=== PATIENT | male | born 1985 | race African-American/Black ===

== ENCOUNTER 2021-11-25 02:16 | Emergency (ER) | payer SELFPAY ==
[2021-11-25] MEDS ORDERED: Albuterol 8 GM Inhaler INH STA (02:35)
[2021-11-25 03:15] LABS: CORONAVIRUS COVID-19 NAA POSITIVE (NEGATIVE); INFLUENZA A NAA NEGATIVE (NEGATIVE); INFLUENZA B NAA NEGATIVE (NEGATIVE)
== END 2021-11-25 03:28 | disposition home or self-care (01) ==
LOC: MW.ED 02:16
DX: U07.1 COVID-19 (principal); Z88.0 Allergy status to penicillin
CPT/HCPCS: 0240U; 71046; 99283; A9270